=== PATIENT | male | born 1940 | race Caucasian/White ===

== ENCOUNTER 2016-12-08 01:05 | Emergency (ER) | payer MEDICARE, BC ==
[2016-12-08 01:13] VITALS: BP 120/91
[2016-12-08] MEDS ORDERED: Heparin VIAL(*) 5000 UNITS/ML VIAL (FIVE THOUSAND) IV SCH (02:00)
[2016-12-08] MEDS ORDERED: Heparin VIAL(*) 5000 UNITS/ML VIAL (FIVE THOUSAND) ONE (02:12)
[2016-12-08 02:28] LABS: Hematocrit 43 % (42-52); Hemoglobin 14.4 g/dl (14.0-18.0); Mean Corpuscular HGB Conc 34 g/dl (31-36); Mean Corpuscular Hemoglobin 32 pg (27-31); Mean Corpuscular Volume 96 fL (80-94); Mean Platelet Volume 9 um3 (7.4-10.4); Red Blood Count 4.47 10^6/ul (4.0-5.4); Red Cell Distribution Width 14 % (10.5-15); White Blood Count 8.7 10^3/ul (3.5-10.8)
--- NOTE | 2016-12-08 02:39 | ED ---
Jonh Ayon Karl, scribed for Praveen Trinh on 12/08/16 at 0127 . Lower Extremity - HPI Summary HPI Summary: 75 y/o M presents with LLE discomfort/tingling that woke him from sleep. Pt reported pain/discomfort his left lower leg from the knee down when he is trying to sleep. Pt stated it feels like his LLE is numb from below the knee. Hx : Stroke. - History of Current Complaint Chief Complaint: EDExtremityLower Stated Complaint: LT LEG PAIN Time Seen by Provider: 12/08/16 01:20 Hx Obtained From: Patient Mechanism Of Injury: Unknown Onset of Pain: Immediate Onset/Duration: Hours Severity Initially: Mild Severity Currently: Mild Pain Intensity: 3 - LLE discomfort Pain Scale Used: 0-10 Numeric Timing: Constant Location: Is Discrete @ - LLE - Allergies/Home Medications Allergies/Adverse Reactions: Allergies Allergy/AdvReac Type Severity Reaction Status Date / Time Sulfa Drugs Allergy Bleeding Verified 05/24/14 05:13 PMH/Surg Hx/FS Hx/Imm Hx Previously Healthy: No Endocrine/Hematology History: Reports: Hx Anticoagulant Therapy - xerotal Denies: Hx Blood Disorders, Hx Blood Transfusions, Hx Diabetes, Hx Thyroid Disease, Other Endocrine/Hematological Disorders Cardiovascular History: Reports: Hx Hypertension - ON MEDICATION FOR, Other Cardiovascular Problems/Disorders - ATRIAL FIBRILLATION Denies: Hx Congestive Heart Failure, Hx Pacemaker/ICD Respiratory History: Reports: Hx Sleep Apnea Denies: Hx Asthma, Other Respiratory Problems/Disorders History: Reports: Other Problems/Disorders - 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 Denies: Hx Hearing Aid, Other Sensory Impairments Opthamlomology History: Reports: Hx Cataracts - LEFT EYE, Hx Contacts or Glasses - GLASSES-READING, Hx Eye Injury - 3 tears in one retina, annealed with laser, slight fuzziness in vision, Hx Vision Problem - a little fuzzy in one eye ; some floaters. Denies: Other Sensory Impairments Neurological History: Denies: Other Neuro Impairments/Disorders Psychiatric History: Denies: Hx Panic Disorder, Hx Suicide Attempt, Hx of Violent Episodes Against Others - Surgical History Surgery Procedure, Year, and Place: APPENDECTOMY age 9. [id number]. Foot fx 1977. GALLBLADDER- [place] [place] Hx Anesthesia Reactions: No Infectious Disease History: No Infectious Disease History: Denies: Traveled Outside the [place] in Last 30 Days - Family History Known Family History: Positive: Cardiac Disease - father - [place] in 50's, Hypertension, Other - mother - blood clot - Social History Alcohol Use: None Substance Use Type: Reports: None Smoking Status (MU): Former Smoker Review of Systems Constitutional: Negative Eyes: Negative ENT: Negative Cardiovascular: Negative Respiratory: Negative Gastrointestinal: Negative Genitourinary: Negative Positive: Other - discomfort in LLE Skin: Negative Positive: Numbness - and tingling in left lower extremity Psychological: Normal All Other Systems Reviewed And Are Negative: Yes Physical Exam Triage Information Reviewed: Yes Vital Signs On Initial Exam: Initial Vitals Temp Pulse Resp BP Pulse Ox 98.3 F 76 18 120/91 98 12/08/16 01:11 12/08/16 01:11 12/08/16 01:11 12/08/16 01:11 12/08/16 01:11 Vital Signs Reviewed: Yes Appearance: Positive: Well-Appearing, No Pain Distress Skin: Positive: Warm, Skin Color Reflects Adequate Perfusion, Dry Head/Face: Positive: Normal Head/Face Inspection Eyes: Positive: EOMI, CHELY ENT: Positive: Normal ENT inspection Neck: Positive: Supple, Nontender Respiratory/Lung Sounds: Positive: Clear to Auscultation, Breath Sounds Present Cardiovascular: Positive: RRR. Negative: Pulses are Symmetrical in both Upper and Lower Extremities Abdomen Description: Positive: Nontender, Soft Bowel Sounds: Positive: Present Musculoskeletal: Positive: Normal, Strength/ROM Intact, Other - lf dorsalis pedis artery not palpable lf or heard by doppler. Neurological: Positive: Normal, Sensory/Motor Intact, Alert, Oriented to Person Place, Time Psychiatric: Positive: Affect/Mood Appropriate Diagnostics - Vital Signs Vital Signs Temp Pulse Resp BP Pulse Ox 12/08/16 01:11 98.3 F 76 18 120/91 98 - Laboratory Result Diagrams: 12/08/16 02:10 Lab Statement: Any lab studies that have been ordered have been reviewed, and results considered in the medical decision making process. Lower Extremity Course/Dx - Course Course Of Treatment: Pt signed out AMA, refused ambulance. Pt will travel to [facility] for further evaluation. dr del rio accepted the pt .vascular - Diagnoses Provider Diagnoses: Arterial occlusion, lower extremity, Atrial fibrillation - Physician Notifications Discussed Care of Patient With: Dr. Khan (Emergency Medicine Physician at [facility]) at 2:00 who agreed to take the pt. - Critical Care Time Critical Care Time: 30-74 min - 30 min Discharge - Discharge Plan Condition: Guarded Disposition: AGAINST MEDICAL ADVICE Referrals: Antonia Tovar NP [Primary Care Provider] - Additional Instructions: Go to [facility] immediately for further evaluation. The documentation as recorded by the Jonh vicente Karl accurately reflects the service I personally performed and the decisions made by , Praveen Trinh.
[2016-12-08 02:42] LABS: BUN/Creatinine Ratio 19.6 (8-20); Calcium 9.9 mg/dL (8.6-10.3); EGFR African American 57.7 (>60); EGFR Non-African American 44.8 (>60); Globulin 3.3 g/dL (2-4); Total Bilirubin 0.5 mg/dL (0.2-1.0); Total Protein 7.3 g/dL (6.4-8.9)
[2016-12-08 02:51] LABS: Potassium 4.5 mmol/L (3.5-5.0)
== END 2016-12-08 02:36 | disposition left against medical advice (07) ==
LOC: ED 01:05
DX: I77.1 Stricture of artery (principal); I48.91 Unspecified atrial fibrillation; Z87.891 Personal history of nicotine dependence; Z79.01 Long term (current) use of anticoagulants; Z88.2 Allergy status to sulfonamides; I10 Essential (primary) hypertension
CPT/HCPCS: 36415; 80053; 85025; 85610; 85730; 96374; 99282; J1644

== ENCOUNTER 2018-04-17 00:35 | Emergency (ER) | payer MEDICARE, BC ==
[2018-04-17 01:30] VITALS: BP 0/0
[2018-04-17] MEDS ORDERED: Ciproflox/Dexameth OTIC.SUSP* 7.5 ML BTL LEFT EAR SCH (09:00)
--- NOTE | 2018-04-17 22:37 | ED ---
Navjot Ayon Angela, scribed for Paulina Sams MD on 04/17/18 at 0108 . Throat Pain/Nasal Congestion - HPI Summary HPI Summary: This pt is a 77 y/o male presenting [facility] c/o right ear pain since last night. Pt reports his ear pain began a couple of hours ago. Denies recent swimming. Denies inserting Qtip into right ear prior to pain. Additionally he states he has a productive cough with sputum for the past few nights. Denies fever, nasal congestion, sore throat. - History of Current Complaint Chief Complaint: EDEarPain Time Seen by Provider: 04/17/18 00:57 Hx Obtained From: Patient Onset/Duration: Lasting Hours, Still Present Severity: Moderate Associated Signs And Symptoms: Negative: Dysphagia, FB Sensation, Drooling, Wheezing, Hoarseness, Sinus Discomfort, Nasal Discharge Cough: Productive - Allergies/Home Medications Allergies/Adverse Reactions: Allergies Allergy/AdvReac Type Severity Reaction Status Date / Time Sulfa (Sulfonamide Allergy Bleeding Verified 04/17/18 00:54 Antibiotics) PMH/Surg Hx/FS Hx/Imm Hx Endocrine/Hematology History: Reports: Hx Anticoagulant Therapy - xerotal Denies: Hx Blood Disorders, Hx Blood Transfusions, Hx Diabetes, Hx Thyroid Disease, Other Endocrine/Hematological Disorders Cardiovascular History: Reports: Hx Hypertension - ON MEDICATION FOR, Other Cardiovascular Problems/Disorders - ATRIAL FIBRILLATION Denies: Hx Congestive Heart Failure, Hx Pacemaker/ICD Respiratory History: Reports: Hx Sleep Apnea Denies: Hx Asthma, Other Respiratory Problems/Disorders History: Reports: Other Problems/Disorders - 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 Denies: Hx Hearing Aid, Other Sensory Impairments Opthamlomology History: Reports: Hx Cataracts - LEFT EYE, Hx Contacts or Glasses - GLASSES-READING, Hx Eye Injury - 3 tears in one retina, annealed with laser, slight fuzziness in vision, Hx Vision Problem - a little fuzzy in one eye ; some floaters. Denies: Other Sensory Impairments Neurological History: Denies: Other Neuro Impairments/Disorders Psychiatric History: Denies: Hx Panic Disorder, Hx Suicide Attempt, Hx of Violent Episodes Against Others - Surgical History Surgery Procedure, Year, and Place: APPENDECTOMY age 9. [id number]. Foot fx 1977. GALLBLADDER- 2012-[facility] [place] Hx Anesthesia Reactions: No - Immunization History Date of Tetanus Vaccine: utd Date of Influenza Vaccine: fall 2016 Infectious Disease History: No Infectious Disease History: Denies: Traveled Outside the [place] in Last 30 Days - Family History Known Family History: Positive: Cardiac Disease - father - [place] in 50's, Hypertension, Other - mother - blood clot - Social History Alcohol Use: Rare Substance Use Type: Reports: None Smoking Status (MU): Former Smoker Review of Systems Negative: Fever, Chills Positive: Ear Ache - right. Negative: Sore Throat, Nasal Discharge Negative: Chest Pain Positive: Cough Musculoskeletal: Negative Skin: Negative Neurological: Negative All Other Systems Reviewed And Are Negative: Yes Physical Exam - Summary Physical Exam Summary: VITAL SIGNS: Reviewed. GENERAL: Patient is a well-developed and nourished male who is lying comfortable in the stretcher. Patient is not in any acute respiratory distress. HEAD AND FACE: No signs of trauma. No ecchymosis, hematomas or skull depressions. No sinus tenderness. EYES: PERRLA, EOMI x 2, No injected conjunctiva, no nystagmus. EARS: Hearing grossly intact. Right ear: tenderness of the tragus. Ear canal is mildly erythematous. MOUTH: Oropharynx within normal limits. NECK: Supple, trachea is midline, no adenopathy, no JVD, no carotid bruit, no c- spine tenderness, neck with full ROM. CHEST: Symmetric, no tenderness at palpation LUNGS: Clear to auscultation bilaterally. No wheezing or crackles. CVS: Regular rate and rhythm, S1 and S2 present, no murmurs or gallops appreciated. ABDOMEN: Soft, non-tender. No signs of distention. No rebound no guarding, and no masses palpated. Bowel sounds are normal. EXTREMITIES: FROM in all major joints, no edema, no cyanosis or clubbing. NEURO: Alert and oriented x 3. No acute neurological deficits. Speech is normal and follows commands. SKIN: Dry and warm Triage Information Reviewed: Yes Vital Signs On Initial Exam: Initial Vitals Temp Pulse Resp BP Pulse Ox 97.5 F 57 22 98/76 97 04/17/18 00:37 04/17/18 00:37 04/17/18 00:37 04/17/18 00:37 04/17/18 00:37 Vital Signs Reviewed: Yes Diagnostics - Vital Signs Vital Signs Temp Pulse Resp BP Pulse Ox 04/17/18 00:37 97.5 F 57 22 98/76 97 - Laboratory Lab Statement: Any lab studies that have been ordered have been reviewed, and results considered in the medical decision making process. EENT Course/Dx - Course Assessment/Plan: Pt is a 77 y/o male who presents with right ear pain since last night. Pt reports his ear pain began a couple of hours ago. Denies recent swimming. Denies inserting Qtip into right ear prior to pain. Additionally he states he has a productive cough with sputum for the past few nights. Denies fever, nasal congestion, sore throat. Pt has otitis externa of the right ear. He will be discharged home with Ciprodex. He is instructed to use 4 drops twice a day for the next 7 days. Pt is advised to return to the ED for any worsening symptoms. - Diagnoses Provider Diagnoses: Otitis externa of right ear Discharge - Sign-Out/Discharge Documenting (check all that apply): Discharge/Admit/Transfer - Discharge - Discharge Plan Condition: Stable Disposition: HOME Patient Education Materials: Otitis Externa (ED) Referrals: Antonia Tovar NP [Primary Care Provider] - Additional Instructions: Use Ciprodex 4 drops twice a day for 7 days. Please follow up with your primary care provider. RETURN TO EMERGENCY DEPARTMENT FOR ANY NEW OR WORSENING SYMPTOMS. The documentation as recorded by the Navjot vicente Angela accurately reflects the service I personally performed and the decisions made by me, Paulina Sams MD.
== END 2018-04-17 01:29 | disposition home or self-care (01) ==
LOC: ED 00:35
DX: H60.91 Unspecified otitis externa, right ear (principal); R05 Cough; I48.91 Unspecified atrial fibrillation; Z79.01 Long term (current) use of anticoagulants; I10 Essential (primary) hypertension; G47.30 Sleep apnea, unspecified; Z90.5 Acquired absence of kidney; Z90.89 Acquired absence of other organs; Z90.49 Acquired absence of other specified parts of digestive tract; Z88.2 Allergy status to sulfonamides; Z82.49 Family history of ischemic heart disease and other diseases of the circulatory system; Z87.891 Personal history of nicotine dependence
CPT/HCPCS: 99282; A9270-GY

== ENCOUNTER 2022-07-22 13:31 | Inpatient (IN) ==
[2022-07-22 20:28] LABS: Urine Appearance Clear; Urine Bilirubin Negative (Negative); Urine Blood Negative (Negative); Urine Color Straw; Urine Glucose Negative (Negative); Urine Ketones Negative (Negative); Urine Nitrite Negative (Negative); Urine Protein Negative (Negative); Urine Specific Gravity 1.005 (1.002-1.030); Urine Urobilinogen Negative (Negative)
[2022-07-22 20:31] LABS: Urine Bacteria Absent (Absent); Urine Red Blood Cell Absent (Absent); Urine White Blood Cell 1+(6-10/hpf) (Absent)
[2022-07-22 20:32] LABS: ABS Basophils 0.1 10^3/ul (0-0.2); ABS Eosinophils 0.2 10^3/ul (0-0.6); ABS Lymphocytes 1.5 10^3/ul (1.0-4.8); ABS Monocytes 0.7 10^3/ul (0-0.8); ABS Neutrophils 6.5 10^3/ul (1.5-7.7); Eosinophil % 2.3 %; Hematocrit 45 % (42-52); Hemoglobin 15.1 g/dL (14.0-18.0); Lymphocyte % 16.7 %; Mean Corpuscular HGB Conc 33 g/dL (31-36); Mean Corpuscular Hemoglobin 32 pg (27-31); Mean Corpuscular Volume 97 fL (80-94); Mean Platelet Volume 8.2 fL (7.4-10.4); Platelet Count 141 10^3/uL (150-450); Red Blood Count 4.68 10^6 /uL (4.18-5.48); Red Cell Distribution Width 14 % (10-15); White Blood Count 8.9 10^3/uL (3.5-10.8)
[2022-07-22 20:47] LABS: INR 1.32 (0.89-1.11)
[2022-07-22 21:03] LABS: Albumin 4.2 g/dL (3.2-5.2); Calcium 10.2 mg/dL (8.6-10.3); Potassium 4.8 mmol/L (3.5-5.0); Total Bilirubin 0.9 mg/dL (0.2-1.0)
[2022-07-22 21:09] LABS: Albumin/Globulin Ratio 1.4 (1-3); Globulin 2.9 g/dL (2-4); Total Protein 7.1 g/dL (6.4-8.9)
[2022-07-22] MEDS ORDERED: Morphine 2 MG/ML SYRINGE IV PRN (21:35)
[2022-07-23] MEDS ORDERED: Dextrose 50% Syringe 50 ml 25 GM/50 ML SYRINGE IV PUSH PRN (00:14)
[2022-07-23 05:04] LABS: ABS Basophils 0.1 10^3/ul (0-0.2); ABS Eosinophils 0.2 10^3/ul (0-0.6); ABS Lymphocytes 1.4 10^3/ul (1.0-4.8); ABS Monocytes 0.5 10^3/ul (0-0.8); ABS Neutrophils 5.7 10^3/ul (1.5-7.7); Eosinophil % 3.1 %; Hematocrit 43 % (42-52); Hemoglobin 14.2 g/dL (14.0-18.0); Lymphocyte % 17.4 %; Mean Corpuscular HGB Conc 33 g/dL (31-36); Mean Corpuscular Hemoglobin 32 pg (27-31); Mean Corpuscular Volume 97 fL (80-94); Mean Platelet Volume 8.1 fL (7.4-10.4); Platelet Count 132 10^3/uL (150-450); Red Cell Distribution Width 14 % (10-15); White Blood Count 7.9 10^3/uL (3.5-10.8)
[2022-07-23 05:49] LABS: Calcium 9.4 mg/dL (8.6-10.3); Potassium 4.4 mmol/L (3.5-5.0)
[2022-07-24 00:16] LABS: Calcium 9.4 mg/dL (8.6-10.3); Potassium 4.3 mmol/L (3.5-5.0)
[2022-07-24 00:22] LABS: eGFR CKD-EPI 55.9 (>60)
[2022-07-24] MEDS ORDERED: Buffered Lidocaine 1% SYRIN 1 ml INTRADERM ONE (06:00)
[2022-07-24 06:18] LABS: ABS Basophils 0.1 10^3/ul (0-0.2); ABS Eosinophils 0.2 10^3/ul (0-0.6); ABS Monocytes 0.5 10^3/ul (0-0.8); ABS Neutrophils 6.7 10^3/ul (1.5-7.7); Eosinophil % 2.6 %; Hematocrit 42 % (42-52); Hemoglobin 14.4 g/dL (14.0-18.0); Lymphocyte % 11.4 %; Mean Corpuscular HGB Conc 35 g/dL (31-36); Mean Corpuscular Hemoglobin 33 pg (27-31); Mean Corpuscular Volume 97 fL (80-94); Mean Platelet Volume 8.7 fL (7.4-10.4); Platelet Count 123 10^3/uL (150-450); Red Blood Count 4.33 10^6 /uL (4.18-5.48); Red Cell Distribution Width 14 % (10-15); White Blood Count 8.6 10^3/uL (3.5-10.8)
[2022-07-24 06:38] LABS: Magnesium 1.9 mg/dL (1.9-2.7)
[2022-07-24 06:44] LABS: Phosphorus 2.9 mg/dL (2.5-5.0)
[2022-07-24] MEDS: Lactated Ringers 1000 ml BAG 1,000 ML IV SCH ×3 (10:13→17:11)
[2022-07-24] MEDS ORDERED: Propofol 10 MG/ML 20 ML BTL ONE (10:48)
[2022-07-24] MEDS ORDERED: Dexamethasone IV 4 MG/ML VIAL 1 ml VIAL ONE (10:48)
[2022-07-24] MEDS ORDERED: Rocuronium 50 mg VIAL 10 mg/ml 5 ml VIAL (50 mg) ONE (10:48)
[2022-07-24] MEDS ORDERED: Ondansetron 4 mg VIAL 2 MG/ML 2 ml VIAL ONE (10:48)
[2022-07-24] MEDS ORDERED: Lidocaine 2% PF 5 ML VIAL ONE (10:48)
[2022-07-24] MEDS ORDERED: fentaNYL 100 mcg/2 ml 50 MCG/ML VIAL ONE (12:16)
[2022-07-24] MEDS ORDERED: Midazolam 2 mg/2 ml VIAL 1 mg/ml 2 ml VIAL (2 mg) ONE (12:16)
[2022-07-24] MEDS ORDERED: Levalbuterol 1.25MG/0.5ML NEB.SOL ONE (12:50)
[2022-07-24] MEDS ORDERED: Levalbuterol 1.25MG/0.5ML NEB.SOL INH ONE (12:52)
[2022-07-24] MEDS ORDERED: Naloxone 0.4 mg VIAL 0.4 mg/ml 1 ml VIAL IV PRN (12:53)
[2022-07-24] MEDS ORDERED: Levalbuterol 1.25MG/0.5ML NEB.SOL INH PRN (12:53)
[2022-07-24] MEDS ORDERED: Ondansetron 4 mg VIAL 2 MG/ML 2 ml VIAL IV PRN (12:53)
[2022-07-24] MEDS ORDERED: HYDROmorphone 1 MG/1 ML SYRINGE IV PRN (12:53)
[2022-07-24] MEDS ORDERED: fentaNYL 100 mcg/2 ml 50 MCG/ML VIAL IV PRN (12:53)
[2022-07-24] MEDS ORDERED: ceFAZolin 1 GM in Dextrose 1 GM/50 ML BAG ONE (12:55)
[2022-07-24] MEDS ORDERED: ceFAZolin 2 GM PREMIX 2 GM/50 ML BAG ONE (12:55)
[2022-07-24] MEDS ORDERED: Phenylephrine 40 mcg/mL 10mL (400mcg) SYRINGE ONE (13:50)
[2022-07-24] MEDS ORDERED: Phenylephrine IV 10 MG/ML 1 ml VIAL ONE (13:58)
[2022-07-24] MEDS ORDERED: ROPIVACAINE 5 MG/ML 30 ML BTL (0.5%) ONE (14:23)
[2022-07-24] MEDS ORDERED: Polyethylene Glycol 3350 17 GM PACKET PO PRN (16:00)
[2022-07-24] MEDS ORDERED: Senna TAB 8.6 mg TAB PO PRN (16:00)
[2022-07-24] MEDS: ceFAZolin 1 GM X 3 DOSES POST-OP Q8H (AddVan) IVPB SCH (22:36)
[2022-07-25] MEDS: Lactated Ringers 1000 ml BAG 1,000 ML IV SCH (03:01)
[2022-07-25] MEDS: ceFAZolin 1 GM X 3 DOSES POST-OP Q8H (AddVan) IVPB SCH ×2 (05:46→14:59)
[2022-07-25 08:17] LABS: Hematocrit 40 % (42-52); Hemoglobin 13.4 g/dL (14.0-18.0); Mean Platelet Volume 8.6 fL (7.4-10.4); Platelet Count 122 10^3/uL (150-450)
[2022-07-25] MEDS ORDERED: Enoxaparin 40 MG/0.4 ML SYR SUBCUT SCH (09:00)
[2022-07-25 09:01] LABS: Calcium 8.7 mg/dL (8.6-10.3); Potassium 4.5 mmol/L (3.5-5.0)
[2022-07-25 09:06] LABS: eGFR CKD-EPI 64.7 (>60)
[2022-07-25] MEDS ORDERED: Albuterol HFA INHALER 8 gm MDI INH PRN (11:57)
[2022-07-25] MEDS: SPIRIVA Respimat (tiotropium) 2.5 mcg/inh Inhaler INH SCH (19:07)
[2022-07-26] MEDS: SPIRIVA Respimat (tiotropium) 2.5 mcg/inh Inhaler INH SCH (07:37)
[2022-07-26 07:58] VITALS: BP 125/85
== END 2022-07-26 08:50 | DRG 482 ==
LOC: ED 13:31 → SUATTDRO 21:11 → EDHOLD 21:11 → SSU 07-23 23:21
PROVIDERS: ADMIT Orthopaedic Surgery Adult Reconstructive Orthopaedic Surgery; ATTEND Hospitalist

== ENCOUNTER 2022-07-26 08:07 | Inpatient (IN) ==
[2022-07-26] MEDS ORDERED: Senna TAB 8.6 mg TAB PO PRN (13:20)
[2022-07-26] MEDS ORDERED: Magnesium Hydroxide LIQ 30 ML UDC PO PRN (13:20)
[2022-07-26] MEDS ORDERED: Dextrose 50% Syringe 50 ml 25 GM/50 ML SYRINGE IV PUSH PRN (13:30)
[2022-07-26] MEDS ORDERED: Albuterol HFA INHALER 8 gm MDI INH PRN (18:48)
[2022-07-27] MEDS: SPIRIVA Respimat (tiotropium) 2.5 mcg/inh Inhaler INH SCH (08:59)
[2022-07-28] MEDS: SPIRIVA Respimat (tiotropium) 2.5 mcg/inh Inhaler INH SCH (08:13)
[2022-07-29 06:41] LABS: ABS Basophils 0.1 10^3/ul (0-0.2); ABS Eosinophils 0.3 10^3/ul (0-0.6); ABS Lymphocytes 1.4 10^3/ul (1.0-4.8); ABS Monocytes 0.8 10^3/ul (0-0.8); ABS Neutrophils 4.5 10^3/ul (1.5-7.7); Eosinophil % 4.3 %; Hematocrit 40 % (42-52); Hemoglobin 13.5 g/dL (14.0-18.0); Lymphocyte % 19.4 %; Mean Corpuscular HGB Conc 34 g/dL (31-36); Mean Corpuscular Hemoglobin 32 pg (27-31); Mean Corpuscular Volume 97 fL (80-94); Mean Platelet Volume 7.8 fL (7.4-10.4); Nucleated Red Blood Cells % 0.1; Platelet Count 136 10^3/uL (150-450); Red Blood Count 4.15 10^6 /uL (4.18-5.48); Red Cell Distribution Width 14 % (10-15); White Blood Count 7.2 10^3/uL (3.5-10.8)
[2022-07-29 07:16] LABS: Albumin 3.5 g/dL (3.2-5.2); Albumin/Globulin Ratio 1.4 (1-3); Calcium 9.2 mg/dL (8.6-10.3); Globulin 2.5 g/dL (2-4); Total Bilirubin 0.7 mg/dL (0.2-1.0); eGFR CKD-EPI 54.4 (>60)
[2022-07-29] MEDS: SPIRIVA Respimat (tiotropium) 2.5 mcg/inh Inhaler INH SCH (07:31)
[2022-07-29 07:32] LABS: Potassium 5.1 mmol/L (3.5-5.0)
[2022-07-30] MEDS: SPIRIVA Respimat (tiotropium) 2.5 mcg/inh Inhaler INH SCH (09:55)
[2022-07-31] MEDS: SPIRIVA Respimat (tiotropium) 2.5 mcg/inh Inhaler INH SCH (08:07)
[2022-08-01] MEDS: SPIRIVA Respimat (tiotropium) 2.5 mcg/inh Inhaler INH SCH (08:10)
[2022-08-01] MEDS ORDERED: COVID VACC, BIVAL MODERNA 50 MCG/0.5 ML SYR IM ONE (14:00)
[2022-08-02 05:33] VITALS: BP 133/89
[2022-08-02] MEDS: SPIRIVA Respimat (tiotropium) 2.5 mcg/inh Inhaler INH SCH (07:24)
== END 2022-08-02 15:35 | disposition home health service (06) | DRG 561 ==
LOC: PMRU 09:07
PROVIDERS: ADMIT Physical Medicine & Rehabilitation; ATTEND Physical Medicine & Rehabilitation

== ENCOUNTER 2024-09-20 16:49 | Observation (INO) ==
[2024-09-20 17:29] LABS: ABS Basophils 0.1 10^3/uL (0.0-0.1); ABS Lymphocytes 0.8 10^3/uL (1.0-4.8); ABS Monocytes 0.6 10^3/uL (0.0-1.1); ABS Neutrophils 6.9 10^3/uL (1.5-7.6); ABS Nucleated RBC 0.01 10^3/ul; Eosinophil % 0.4 %; Hematocrit 20.8 % (38-53); Lymphocyte % 9.9 %; Mean Corpuscular Hemoglobin 31.8 pg (27-33); Mean Corpuscular Hgb Conc 33.3 g/dL (31-36); Mean Corpuscular Volume 95.4 fL (80-97); Mean Platelet Volume 6.6 fL (7.5-11.2); Nucleated Red Blood Cells % 0.1 %/100WBC (0.0-0.8); Platelet Count 233 10^3/uL (150-450); Red Blood Count 2.18 10^6/uL (4.06-5.63); Red Cell Distribution Width 14.9 % (12-17); White Blood Count 8.5 10^3/uL (3.6-10.2)
[2024-09-20 17:46] LABS: INR 2.7 (0.85-1.14)
[2024-09-20 17:54] LABS: High Sens Troponin Baseline 19 pg/mL (<20)
[2024-09-20 18:08] LABS: ALT 35 U/L (7-52); AST 52 U/L (13-39); Albumin/Globulin Ratio 1.7 (1-3); Alkaline Phosphatase 51 U/L (35-149); Anion Gap 10 mmol/L (2-16); Blood Urea Nitrogen 45 mg/dL (6-24); CO2 Carbon Dioxide 22 mmol/L (22-32); Calcium 9.4 mg/dL (8.6-10.3); Chloride 100 mmol/L (101-111); Creatinine, Serum 1.64 mg/dL (0.67-1.17); Globulin 2.3 g/dL (2-4); Glucose 143 mg/dL (70-100); Sodium 132 mmol/L (135-145); Total Bilirubin 0.8 mg/dL (0.2-1.0); Total Protein 6.3 g/dL (6.4-8.9); eGFR CKD-EPI 41.8 (>60)
[2024-09-20 18:57] LABS: High Sensitivity Troponin 1 Hr 20 pg/mL (<20)
[2024-09-20 22:50] LABS: % Iron Saturation 4 % (15-55); .Transferrin 340 mg/dL (203-362); Iron 21 ug/dL (50-212); Total Iron Binding Capacity 476 mcg/dL (250-450); Unsaturated Iron Binding 455 ug/dL
[2024-09-20 23:12] LABS: Ferritin 4.5 ng/mL (24-336)
[2024-09-20 23:15] LABS: Folate 12.16 ng/mL (5.90-24.80)
[2024-09-20 23:16] LABS: Vitamin B12 > 1450 pg/mL (180-914)
[2024-09-20] MEDS: Lactated Ringers 1000 ml BAG 500 ML IV ONE (23:35)
[2024-09-20] MEDS: Pantoprazole VIAL 40 MG VIAL IV ONE (23:50)
[2024-09-21 02:51] LABS: Hematocrit 20.2 % (38-53); Hemoglobin 6.8 g/dL (13.2-16.3)
[2024-09-21] MEDS: Pantoprazole VIAL 40 MG VIAL IV SCH (08:19)
[2024-09-21 08:55] LABS: ABS Basophils 0.1 10^3/uL (0.0-0.1); ABS Eosinophils 0.2 10^3/uL (0.0-0.5); ABS Lymphocytes 0.9 10^3/uL (1.0-4.8); ABS Monocytes 0.7 10^3/uL (0.0-1.1); ABS Neutrophils 5.8 10^3/uL (1.5-7.6); ABS Nucleated RBC 0.01 10^3/ul; Eosinophil % 2.3 %; Hematocrit 22.7 % (38-53); Hemoglobin 7.7 g/dL (13.2-16.3); Lymphocyte % 11.7 %; Mean Corpuscular Hemoglobin 31.5 pg (27-33); Mean Corpuscular Hgb Conc 33.6 g/dL (31-36); Mean Corpuscular Volume 93.7 fL (80-97); Mean Platelet Volume 6.7 fL (7.5-11.2); Nucleated Red Blood Cells % 0.1 %/100WBC (0.0-0.8); Platelet Count 209 10^3/uL (150-450); Red Blood Count 2.43 10^6/uL (4.06-5.63); Red Cell Distribution Width 15.1 % (12-17); White Blood Count 7.6 10^3/uL (3.6-10.2)
[2024-09-21 09:15] LABS: Albumin 3.5 g/dL (3.2-5.2); Albumin/Globulin Ratio 1.8 (1-3); Calcium 8.7 mg/dL (8.6-10.3); Creatinine, Serum 1.57 mg/dL (0.67-1.17); Globulin 1.9 g/dL (2-4); Magnesium 2.2 mg/dL (1.9-2.7); Potassium 4.2 mmol/L (3.5-5.0); Total Bilirubin 1.5 mg/dL (0.2-1.0); Total Protein 5.4 g/dL (6.4-8.9)
[2024-09-21] MEDS ORDERED: Propofol 10 MG/ML 20 ML BTL ONE (15:12)
[2024-09-21] MEDS ORDERED: Lidocaine 2% PF 5 ML VIAL ONE (15:12)
[2024-09-21] MEDS: Iodixanol 320 (CONTRAST) 100 ML SDV IV ONE (17:35)
[2024-09-21] MEDS: CMCS:Alfuzosin ER 10 mg TAB.ER (NF) 10 MG TAB.ER PO SCH (17:39)
[2024-09-21 18:43] LABS: Hematocrit 25.1 % (38-53); Hemoglobin 8.3 g/dL (13.2-16.3); Mean Corpuscular Hemoglobin 30.5 pg (27-33); Mean Corpuscular Hgb Conc 33.1 g/dL (31-36); Mean Corpuscular Volume 92.2 fL (80-97); Mean Platelet Volume 6.3 fL (7.5-11.2); Platelet Count 215 10^3/uL (150-450); Red Blood Count 2.72 10^6/uL (4.06-5.63); Red Cell Distribution Width 15.3 % (12-17); White Blood Count 6.9 10^3/uL (3.6-10.2)
[2024-09-21] MEDS: PEG 3000 GI LAVAGE 1 GALLON PO ONE (20:31)
[2024-09-21] MEDS: Nystatin TOP POWDER 15 GM BTL TOPICAL SCH (23:21)
[2024-09-22] MEDS: PEG 3000 GI LAVAGE 1 GALLON PO ONE ×2 (05:48→12:04)
[2024-09-22 06:35] LABS: Hematocrit 26.5 % (38-53); Mean Corpuscular Hemoglobin 31.4 pg (27-33); Mean Corpuscular Volume 92.4 fL (80-97); Mean Platelet Volume 6.3 fL (7.5-11.2); Platelet Count 215 10^3/uL (150-450); Red Blood Count 2.87 10^6/uL (4.06-5.63); Red Cell Distribution Width 15.6 % (12-17); White Blood Count 7.4 10^3/uL (3.6-10.2)
[2024-09-22 06:56] LABS: INR 1.18 (0.85-1.14)
[2024-09-22 07:29] LABS: Albumin 3.8 g/dL (3.2-5.2); Albumin/Globulin Ratio 1.7 (1-3); Calcium 8.9 mg/dL (8.6-10.3); Creatinine, Serum 1.44 mg/dL (0.67-1.17); Globulin 2.2 g/dL (2-4); Total Bilirubin 1.4 mg/dL (0.2-1.0); eGFR CKD-EPI 48.8 (>60)
[2024-09-22] MEDS: Lactated Ringers 1000 ml BAG 1,000 ML IV SCH (11:02)
[2024-09-22] MEDS: Ferric Gluconate IV 250 MG in NS 0.9% 250 ml 200 ML IVPB SCH (11:02)
[2024-09-22] MEDS ORDERED: Lidocaine 2% PF 5 ML VIAL ONE (16:40)
[2024-09-22] MEDS ORDERED: Phenylephrine 40 mcg/mL 10mL (400mcg) SYRINGE ONE (17:14)
[2024-09-22] MEDS ORDERED: Dextrose 50% Syringe 50 ml 25 GM/50 ML SYRINGE IV PUSH PRN (18:11)
[2024-09-23 08:43] LABS: Hemoglobin 9.1 g/dL (13.2-16.3); Mean Corpuscular Hemoglobin 31.5 pg (27-33); Mean Corpuscular Hgb Conc 33.8 g/dL (31-36); Mean Corpuscular Volume 93.1 fL (80-97); Mean Platelet Volume 6.7 fL (7.5-11.2); Platelet Count 211 10^3/uL (150-450); Red Cell Distribution Width 15.7 % (12-17); White Blood Count 7.6 10^3/uL (3.6-10.2)
[2024-09-23 09:25] LABS: Albumin 3.7 g/dL (3.2-5.2); Albumin/Globulin Ratio 1.7 (1-3); Calcium 8.8 mg/dL (8.6-10.3); Creatinine, Serum 1.33 mg/dL (0.67-1.17); Globulin 2.2 g/dL (2-4); Potassium 3.9 mmol/L (3.5-5.0); Total Bilirubin 0.7 mg/dL (0.2-1.0); Total Protein 5.9 g/dL (6.4-8.9); eGFR CKD-EPI 53.7 (>60)
[2024-09-23 13:57] VITALS: BP 96/69
[2024-09-24 19:12] LABS: Helicobacter pylori Result Not Detected; Specimen Source STOOL
== END 2024-09-23 18:00 | disposition home or self-care (01) ==
LOC: ED 16:49 → EDHOLD 16:49 → SUATTDRO 22:14 → MEDTELE 09-21 11:40
PROVIDERS: ADMIT Internal Medicine; ATTEND Internal Medicine
PROC: O.GIEGD (2024-09-21 14:05)